=== PATIENT | female | born 1935 | race African-American/Black ===

== ENCOUNTER 2019-06-25 09:42 | Inpatient (IN) | payer MEDICARE, MEDICAID ==
[~2019-06-25] VITALS: Ht 152.4 cm; Wt 78.6 kg
[2019-06-25] MEDS ORDERED: MORPHINE SULFATE 4 MG/ML CPJ (NOT FOR IM USE) IV STA (10:42)
[2019-06-25] MEDS ORDERED: SODIUM CHLORIDE 0.9% 1,000 ML IV ONE (10:42)
[2019-06-25 11:20] LABS: HEMATOCRIT. 40.8 % (36.0-48.0); HEMOGLOBIN. 13.6 g/dL (12.0-16.0); MEAN CORPUSCULAR HEMOGLOBIN 27.2 pg (28.0-32.0); MEAN CORPUSCULAR VOLUME 81.3 fL (81.0-99.0); MEAN PLATELET VOLUME 10.3 fl (7.4-10.4); PLATELET 234 x1000/uL (130-400); RED BLOOD CELL COUNT 5.01 mill/uL (4.2-5.4); RED CELL DISTRIBUTION WIDTH 14.7 % (11.6-14.6)
[2019-06-25 11:25] LABS: CLARITY URINE CLEAR (CLEAR); COLOR URINE YELLOW (YELLOW); KETONES URINE 1+ (NEGATIVE); LEUKOCYTE ESTERASE URINE NEGATIVE (NEGATIVE); NITRITE URINE NEGATIVE (NEGATIVE); OCCULT BLOOD URINE 3+ (NEGATIVE); PROTEIN URINE 2+ (NEGATIVE); SPECIFIC GRAVITY URINE 1.013 (1.005-1.030); UROBILINOGEN URINE 0.2 E.U./dL (0.2-1.0)
[2019-06-25 11:26] LABS: CHLORIDE 102 mEq/L (98-107)
[2019-06-25 11:28] LABS: PROTHROMBIN TIME 9.8 sec (9.6-11.0)
[2019-06-25] MEDS ORDERED: SODIUM CHLORIDE 0.9% 1000ML BAG (SEPSIS BOLUS) IV ONE (11:30)
[2019-06-25 11:47] LABS: CREATINE KINASE 2717 IU/L (26-192)
[2019-06-25 12:05] LABS: PLATELET ESTIMATE NORMAL
[2019-06-25] MEDS ORDERED: PIPERACILLIN/TAZ 3.375G PREMIX 50 ML IV NR (12:30)
[2019-06-25] MEDS ORDERED: SODIUM CHLORIDE 0.45% 1,000 ML IV SCH (17:31)
[2019-06-25 17:32] VITALS: BP 141/87
[2019-06-25] MEDS ORDERED: GUAIFENESIN 200MG/10ML SUGAR FREE UDC PO PRN (17:45)
[2019-06-25] MEDS ORDERED: IPRATROPIUM/ALBUTEROL 0.5-3(2.5)MG/3ML NEB HHN PRN (17:45)
[2019-06-25] MEDS ORDERED: CLONIDINE 0.1MG TABLET PO PRN (17:45)
[2019-06-25] MEDS ORDERED: PIPERACILLIN/TAZ 3.375G PREMIX 50 ML IV SCH (17:45)
[2019-06-25] MEDS ORDERED: MAGNESIUM/ALUMINUM HYDROXIDE/SIMETHICONE 30ML UDC PO PRN (17:45)
[2019-06-25] MEDS ORDERED: ENOXAPARIN 40MG/0.4ML SYR SUBCUT SCH (17:45)
[2019-06-25] MEDS ORDERED: ACETAMINOPHEN 325MG TABLET PO PRN (17:45)
[2019-06-25] MEDS ORDERED: DIPHENHYDRAMINE 50MG/ML VIAL IV PRN (17:45)
[2019-06-25] MEDS ORDERED: HYDROCODONE/ACETAMINOPHEN 10/325MG TABLET PO PRN (17:45)
[2019-06-25] MEDS ORDERED: ONDANSETRON HCL 4MG/2ML INJ IV PRN (17:45)
[2019-06-25] MEDS ORDERED: LORAZEPAM 2MG/ML CPJ IV PRN (17:45)
[2019-06-25 20:00] VITALS: BP 138/75
[2019-06-25] MEDS: ENOXAPARIN 30MG/0.3ML SYR SUBCUT SCH (20:17)
[2019-06-25] MEDS: SODIUM CHLORIDE 0.9% INJ 3ML FLUSH IVF SCH (20:19)
[2019-06-25] MEDS: PIPERACILLIN/TAZOBACTAM 2.25 G in DEXTROSE 5% WATER 50 ML IV SCH (20:19)
[2019-06-25] MEDS ORDERED: PIPERACILLIN/TAZOBACTAM 2.25 G in DEXTROSE 5% WATER 50 ML IV SCH (22:00)
[2019-06-25] MEDS ORDERED: VANCOMYCIN 1 G PREMIX 200 ML IV NR (23:00)
[2019-06-26] VITALS (19 sets, daily range): BP systolic 94–152; BP diastolic 63–113
[2019-06-26 00:01] LABS: CREATINE KINASE MB FRACTION 13.2 ng/mL (0.5-3.6)
[2019-06-26] MEDS: SODIUM CHLORIDE 0.9% 1,000 ML IV SCH ×2 (05:20→18:09)
[2019-06-26] MEDS: PIPERACILLIN/TAZOBACTAM 2.25 G in DEXTROSE 5% WATER 50 ML IV SCH ×3 (05:40→21:18)
[2019-06-26] MEDS: SODIUM CHLORIDE 0.9% INJ 3ML FLUSH IVF SCH ×3 (05:40→21:18)
[2019-06-26 07:31] LABS: HEMATOCRIT. 37.6 % (36.0-48.0); HEMOGLOBIN. 12.4 g/dL (12.0-16.0); MEAN CORPUSCULAR VOLUME 81.9 fL (81.0-99.0); MEAN PLATELET VOLUME 10.5 fl (7.4-10.4); PLATELET 198 x1000/uL (130-400); RED BLOOD CELL COUNT 4.59 mill/uL (4.2-5.4); RED CELL DISTRIBUTION WIDTH 15.2 % (11.6-14.6)
[2019-06-26 07:50] LABS: CHLORIDE 110 mEq/L (98-107)
[2019-06-26 07:58] LABS: CREATINE KINASE MB FRACTION 9.2 ng/mL (0.5-3.6); HDL CHOLESTEROL 38 mg/dL (40-59); LDL CHOLESTEROL 102 mg/dL (5-100)
[2019-06-26 07:59] LABS: CREATINE KINASE 984 IU/L (26-192)
[2019-06-26] MEDS ORDERED: POTASSIUM CHLORIDE 10MEQ TABLET SR PO SCH (09:15)
[2019-06-26] MEDS: ASPIRIN 81MG TABLET PO SCH (10:00)
[2019-06-26 12:55] LABS: T4 FREE 1.54 ng/dL (0.76-1.46)
[2019-06-26 15:04] LABS: CREATINE KINASE MB FRACTION 5.6 ng/mL (0.5-3.6)
[2019-06-26] MEDS ORDERED: VANCOMYCIN 750 MG PREMIX 150 ML IV SCH (16:00)
[2019-06-26 17:06] LABS: PLATELET ESTIMATE NORMAL
[2019-06-26] MEDS ORDERED: ADENOSINE 3 MG/ML 2ML VIAL IV NR ×2 (17:45→18:00)
[2019-06-26] MEDS ORDERED: KCL 20MEQ/100ML PREMIX 100 ML IV NR (18:00)
[2019-06-26 18:24] LABS: BG BASE EXCESS -5.5 mmol/L (-2.0-2.0); BG CARBOXYHEMOGLOBIN 0.5 % (0.5-1.5); BG DEOXYHEMOGLOBIN 4.1 % (0.0-5.0); BG FRACTION INSPIRED OXYGEN 28; BG HCO3 ACT 17.6 mmol/L (22.0-26.0); BG METHEMOGLOBIN 0.1 % (0.0-1.5); BG OXYGEN SATURATION 95.9 % (92.0-98.5); BG OXYHEMOGLOBIN 95.3 % (94.0-97.0); BG PCO2 27.6 mmHg (35.0-45.0); BG PH 7.422 (7.350-7.450); BG PO2 89.8 mmHg (75.0-100.0); BG SAMPLE SITE RIGHT BRACHIAL; BG TOTAL HEMOGLOBIN 12.8 g/dL (12.0-18.0); BG VENT MODE NASAL CANNULA
[2019-06-26] MEDS ORDERED: DILTIAZEM HCL 125 MG in DEXT 5% WATER 100 ML IV PRN (18:45)
[2019-06-26] MEDS: ENOXAPARIN 30MG/0.3ML SYR SUBCUT SCH (19:50)
[2019-06-27] VITALS (60 sets, daily range): BP systolic 106–177; BP diastolic 56–97
[2019-06-27] MEDS: SODIUM CHLORIDE 0.9% INJ 3ML FLUSH IVF SCH ×3 (05:20→22:13)
[2019-06-27] MEDS: PIPERACILLIN/TAZOBACTAM 2.25 G in DEXTROSE 5% WATER 50 ML IV SCH ×3 (05:20→22:13)
[2019-06-27 06:11] LABS: HEMATOCRIT. 36.4 % (36.0-48.0); HEMOGLOBIN. 11.9 g/dL (12.0-16.0); MEAN CORPUSCULAR HEMOGLOBIN 27.1 pg (28.0-32.0); MEAN CORPUSCULAR VOLUME 82.9 fL (81.0-99.0); MEAN PLATELET VOLUME 9.8 fl (7.4-10.4); PLATELET 185 x1000/uL (130-400); RED BLOOD CELL COUNT 4.39 mill/uL (4.2-5.4); RED CELL DISTRIBUTION WIDTH 15.1 % (11.6-14.6)
[2019-06-27 06:29] LABS: CREATINE KINASE MB FRACTION 3.3 ng/mL (0.5-3.6)
[2019-06-27 08:16] LABS: PLATELET ESTIMATE NORMAL
[2019-06-27] MEDS ORDERED: KCL 20MEQ/100ML PREMIX 100 ML IV NR (08:30)
[2019-06-27] MEDS: ASPIRIN 81MG TABLET PO SCH (08:50)
[2019-06-27] MEDS: DOCUSATE SODIUM 100MG CAPSULE PO PRN (08:50)
[2019-06-27] MEDS: DEXTROSE 5% WATER 1,000 ML IV SCH (09:17)
[2019-06-27] MEDS ORDERED: VANCOMYCIN 500 MG PREMIX 100 ML IV SCH (12:00)
[2019-06-27] MEDS: MORPHINE SULFATE 2 MG/ML CPJ (NOT FOR IM USE) IV PRN (12:24)
[2019-06-27] MEDS ORDERED: NITROGLYCERIN 50MG PREMIX 250 ML IV PRN (18:45)
[2019-06-27] MEDS: ENOXAPARIN 30MG/0.3ML SYR SUBCUT SCH (20:42)
[2019-06-28] VITALS (30 sets, daily range): BP systolic 90–159; BP diastolic 56–86
[2019-06-28] MEDS: DEXTROSE 5% WATER 1,000 ML IV SCH (01:48)
[2019-06-28] MEDS: PIPERACILLIN/TAZOBACTAM 2.25 G in DEXTROSE 5% WATER 50 ML IV SCH ×3 (06:07→22:53)
[2019-06-28] MEDS: SODIUM CHLORIDE 0.9% INJ 3ML FLUSH IVF SCH ×3 (06:08→22:45)
[2019-06-28 06:13] LABS: HEMATOCRIT. 35.7 % (36.0-48.0); HEMOGLOBIN. 11.6 g/dL (12.0-16.0); MEAN PLATELET VOLUME 10.5 fl (7.4-10.4); PLATELET 200 x1000/uL (130-400); RED CELL DISTRIBUTION WIDTH 15.2 % (11.6-14.6)
[2019-06-28 06:21] LABS: PHOSPHORUS 1.2 mg/dL (2.5-4.9)
[2019-06-28] MEDS: MORPHINE SULFATE 2 MG/ML CPJ (NOT FOR IM USE) IV PRN ×3 (06:44→22:45)
[2019-06-28 07:42] LABS: NUCLEATED RED BLOOD CELLS 1 /100 WBC; PLATELET ESTIMATE NORMAL
[2019-06-28] MEDS ORDERED: POTASSIUM PHOS,M-BASIC-D-BASIC 20 MMOL in DEXT 5% WATER 243.3333 ML IV ONE (09:00)
[2019-06-28] MEDS: SODIUM CHLORIDE 0.45% 1,000 ML IV SCH (09:02)
[2019-06-28] MEDS: ASPIRIN 81MG TABLET PO SCH (09:02)
[2019-06-28] MEDS: CITRIC ACID/SODIUM CITRATE SOLN 30ML UDC PO SCH ×3 (09:02→18:22)
[2019-06-28] MEDS ORDERED: DEXTROSE 50% WATER 50ML SYRINGE IV PRN (14:45)
[2019-06-28] MEDS: VANCOMYCIN 750 MG PREMIX 150 ML IV SCH (16:08)
[2019-06-28] MEDS ORDERED: BLOOD SUGAR DIAGNOSTIC STRIP TEST SCH (16:50)
[2019-06-28] MEDS ORDERED: INSULIN LISPRO 100 UNITS/ML SUBCUT SCH (17:20)
[2019-06-28] MEDS: DOCUSATE SODIUM SUGAR FREE 100MG/10ML UDC NG SCH (19:45)
[2019-06-28] MEDS: ENOXAPARIN 30MG/0.3ML SYR SUBCUT SCH (20:29)
[2019-06-28] MEDS: LACTULOSE 20G/30ML UDC PO SCH (20:29)
[2019-06-28] MEDS: METOPROLOL TARTRATE 25MG TABLET PO SCH (20:30)
[2019-06-28] MEDS: BLOOD SUGAR DIAGNOSTIC STRIP TEST SCH (22:54)
[2019-06-28] MEDS: INSULIN LISPRO 100 UNITS/ML SUBCUT SCH (23:06)
[2019-06-29] VITALS (18 sets, daily range): BP systolic 92–152; BP diastolic 35–95
[2019-06-29] MEDS ORDERED: INSULIN LISPRO 100 UNITS/ML SUBCUT SCH
[2019-06-29] MEDS: INSULIN LISPRO 100 UNITS/ML SUBCUT SCH ×4 (06:00→23:25)
[2019-06-29] MEDS: PIPERACILLIN/TAZOBACTAM 2.25 G in DEXTROSE 5% WATER 50 ML IV SCH ×3 (06:14→22:16)
[2019-06-29] MEDS: SODIUM CHLORIDE 0.9% INJ 3ML FLUSH IVF SCH ×3 (06:15→22:16)
[2019-06-29] MEDS: BLOOD SUGAR DIAGNOSTIC STRIP TEST SCH ×4 (06:15→23:20)
[2019-06-29 07:29] LABS: HEMATOCRIT. 37.8 % (36.0-48.0); HEMOGLOBIN. 12.4 g/dL (12.0-16.0); MEAN CORPUSCULAR HEMOGLOBIN 27.5 pg (28.0-32.0); MEAN CORPUSCULAR VOLUME 83.8 fL (81.0-99.0); MEAN PLATELET VOLUME 10.2 fl (7.4-10.4); PLATELET 152 x1000/uL (130-400); RED BLOOD CELL COUNT 4.51 mill/uL (4.2-5.4); RED CELL DISTRIBUTION WIDTH 15.4 % (11.6-14.6)
[2019-06-29 08:48] LABS: PHOSPHORUS 1.8 mg/dL (2.5-4.9)
[2019-06-29] MEDS: VANCOMYCIN 750 MG PREMIX 150 ML IV SCH (09:12)
[2019-06-29] MEDS: DOCUSATE SODIUM SUGAR FREE 100MG/10ML UDC NG SCH (09:12)
[2019-06-29] MEDS: ASPIRIN 81MG TABLET PO SCH (09:13)
[2019-06-29] MEDS: CITRIC ACID/SODIUM CITRATE SOLN 30ML UDC PO SCH ×3 (09:13→17:05)
[2019-06-29] MEDS: METOPROLOL TARTRATE 25MG TABLET PO SCH ×2 (09:13→22:14)
[2019-06-29 09:53] LABS: PLATELET ESTIMATE NORMAL
[2019-06-29] MEDS: SODIUM CHLORIDE 0.45% 1,000 ML IV SCH ×2 (10:42→14:50)
[2019-06-29] MEDS: MORPHINE SULFATE 2 MG/ML CPJ (NOT FOR IM USE) IV PRN (11:12)
[2019-06-29] MEDS ORDERED: LORAZEPAM 2MG/ML CPJ IV PRN (12:15)
[2019-06-29] MEDS ORDERED: POTASSIUM PHOS,M-BASIC-D-BASIC 15 MMOL in DEXT 5% WATER 245 ML IV NR (15:30)
[2019-06-29] MEDS: LACTULOSE 20G/30ML UDC PO SCH (22:15)
[2019-06-29] MEDS: ENOXAPARIN 30MG/0.3ML SYR SUBCUT SCH (22:15)
[2019-06-29] MEDS: INSULIN GLARGINE UD 100 UNITS/ML SYR SUBCUT SCH (23:23)
[2019-06-30] VITALS (12 sets, daily range): BP systolic 108–157; BP diastolic 47–128
[2019-06-30] MEDS: PIPERACILLIN/TAZOBACTAM 2.25 G in DEXTROSE 5% WATER 50 ML IV SCH ×3 (05:56→22:19)
[2019-06-30] MEDS: BLOOD SUGAR DIAGNOSTIC STRIP TEST SCH ×3 (05:57→18:00)
[2019-06-30] MEDS: SODIUM CHLORIDE 0.45% 1,000 ML IV SCH ×3 (05:58→17:48)
[2019-06-30] MEDS: SODIUM CHLORIDE 0.9% INJ 3ML FLUSH IVF SCH ×3 (05:58→22:19)
[2019-06-30] MEDS: INSULIN LISPRO 100 UNITS/ML SUBCUT SCH ×3 (07:30→18:10)
[2019-06-30 08:08] LABS: HEMATOCRIT. 33.8 % (36.0-48.0); HEMOGLOBIN. 10.9 g/dL (12.0-16.0); MEAN CORPUSCULAR HEMOGLOBIN 26.8 pg (28.0-32.0); MEAN CORPUSCULAR VOLUME 83.3 fL (81.0-99.0); MEAN PLATELET VOLUME 9.9 fl (7.4-10.4); PLATELET 160 x1000/uL (130-400); RED BLOOD CELL COUNT 4.06 mill/uL (4.2-5.4); RED CELL DISTRIBUTION WIDTH 15.2 % (11.6-14.6)
[2019-06-30] MEDS: DOCUSATE SODIUM SUGAR FREE 100MG/10ML UDC NG SCH (09:07)
[2019-06-30] MEDS: CITRIC ACID/SODIUM CITRATE SOLN 30ML UDC PO SCH ×3 (09:07→18:09)
[2019-06-30] MEDS: ASPIRIN 81MG TABLET PO SCH (09:07)
[2019-06-30] MEDS: METOPROLOL TARTRATE 25MG TABLET PO SCH ×2 (09:09→20:40)
[2019-06-30 10:52] LABS: NUCLEATED RED BLOOD CELLS 3 /100 WBC
[2019-06-30 10:53] LABS: PLATELET ESTIMATE NORMAL
[2019-06-30 11:11] LABS: PHOSPHORUS 1.7 mg/dL (2.5-4.9)
[2019-06-30 17:37] LABS: CLARITY URINE CLEAR (CLEAR); COLOR URINE YELLOW (YELLOW); KETONES URINE NEGATIVE (NEGATIVE); LEUKOCYTE ESTERASE URINE TRACE (NEGATIVE); NITRITE URINE NEGATIVE (NEGATIVE); OCCULT BLOOD URINE 2+ (NEGATIVE); PH URINE 5.5 (4.5-8.0); PROTEIN URINE 2+ (NEGATIVE); SPECIFIC GRAVITY URINE 1.018 (1.005-1.030); UROBILINOGEN URINE 0.2 E.U./dL (0.2-1.0)
[2019-06-30] MEDS: ENOXAPARIN 30MG/0.3ML SYR SUBCUT SCH (20:40)
[2019-06-30] MEDS: LACTULOSE 20G/30ML UDC PO SCH (20:40)
[2019-06-30] MEDS: INSULIN GLARGINE UD 100 UNITS/ML SYR SUBCUT SCH (22:20)
[2019-07-01] VITALS (14 sets, daily range): BP systolic 95–166; BP diastolic 37–88
[2019-07-01] MEDS: BLOOD SUGAR DIAGNOSTIC STRIP TEST SCH ×5 (00:22→23:30)
[2019-07-01] MEDS: INSULIN LISPRO 100 UNITS/ML SUBCUT SCH ×6 (00:48→23:51)
[2019-07-01] MEDS: PIPERACILLIN/TAZOBACTAM 2.25 G in DEXTROSE 5% WATER 50 ML IV SCH (06:04)
[2019-07-01] MEDS: SODIUM CHLORIDE 0.9% INJ 3ML FLUSH IVF SCH ×3 (06:04→21:43)
[2019-07-01] MEDS: SODIUM CHLORIDE 0.45% 1,000 ML IV SCH (06:49)
[2019-07-01] MEDS: DOCUSATE SODIUM SUGAR FREE 100MG/10ML UDC NG SCH (08:43)
[2019-07-01] MEDS: CITRIC ACID/SODIUM CITRATE SOLN 30ML UDC PO SCH ×3 (08:43→17:31)
[2019-07-01] MEDS: ASPIRIN 81MG TABLET PO SCH (08:44)
[2019-07-01] MEDS: METOPROLOL TARTRATE 25MG TABLET PO SCH ×2 (08:44→20:32)
[2019-07-01] MEDS ORDERED: VANCOMYCIN 500 MG PREMIX 100 ML IV SCH (16:00)
[2019-07-01] MEDS: METRONIDAZOLE 500MG TABLET PO SCH ×2 (17:31→23:29)
[2019-07-01] MEDS: LACTULOSE 20G/30ML UDC PO SCH (20:32)
[2019-07-01] MEDS: ENOXAPARIN 30MG/0.3ML SYR SUBCUT SCH (20:32)
[2019-07-01] MEDS: INSULIN GLARGINE UD 100 UNITS/ML SYR SUBCUT SCH (21:44)
[2019-07-02] VITALS (11 sets, daily range): BP systolic 91–149; BP diastolic 53–87
[2019-07-02] MEDS: SODIUM CHLORIDE 0.9% INJ 3ML FLUSH IVF SCH ×3 (06:00→21:14)
[2019-07-02] MEDS: BLOOD SUGAR DIAGNOSTIC STRIP TEST SCH ×4 (06:05→23:40)
[2019-07-02] MEDS: INSULIN LISPRO 100 UNITS/ML SUBCUT SCH ×4 (06:13→23:53)
[2019-07-02 06:30] LABS: HEMATOCRIT. 32.6 % (36.0-48.0); HEMOGLOBIN. 10.7 g/dL (12.0-16.0); MEAN CORPUSCULAR HEMOGLOBIN 27.1 pg (28.0-32.0); MEAN CORPUSCULAR VOLUME 82.6 fL (81.0-99.0); MEAN PLATELET VOLUME 10.1 fl (7.4-10.4); PLATELET 138 x1000/uL (130-400); RED BLOOD CELL COUNT 3.95 mill/uL (4.2-5.4); RED CELL DISTRIBUTION WIDTH 15.5 % (11.6-14.6)
[2019-07-02 06:40] LABS: CHLORIDE 117 mEq/L (98-107)
[2019-07-02 06:55] LABS: PHOSPHORUS 2.3 mg/dL (2.5-4.9)
[2019-07-02] MEDS: METRONIDAZOLE 500MG TABLET PO SCH ×3 (08:14→23:39)
[2019-07-02] MEDS: CITRIC ACID/SODIUM CITRATE SOLN 30ML UDC PO SCH ×3 (08:14→16:02)
[2019-07-02] MEDS: ASPIRIN 81MG TABLET PO SCH (08:14)
[2019-07-02] MEDS: DOCUSATE SODIUM SUGAR FREE 100MG/10ML UDC NG SCH (08:14)
[2019-07-02] MEDS: METOPROLOL TARTRATE 25MG TABLET PO SCH ×2 (08:14→20:26)
[2019-07-02] MEDS ORDERED: POTASSIUM CHLORIDE 20MEQ/PACKET PO NR (08:54)
[2019-07-02] MEDS ORDERED: MAGNESIUM 2 G PREMIX 50 ML IV NR (10:00)
[2019-07-02 10:08] LABS: NUCLEATED RED BLOOD CELLS 2 /100 WBC
[2019-07-02 10:09] LABS: PLATELET ESTIMATE NORMAL
[2019-07-02] MEDS: ENOXAPARIN 30MG/0.3ML SYR SUBCUT SCH (20:26)
[2019-07-02] MEDS: LACTULOSE 20G/30ML UDC PO SCH (20:26)
[2019-07-02] MEDS: INSULIN GLARGINE UD 100 UNITS/ML SYR SUBCUT SCH (21:14)
[2019-07-03] VITALS (10 sets, daily range): BP systolic 114–146; BP diastolic 59–78
[2019-07-03] MEDS: BLOOD SUGAR DIAGNOSTIC STRIP TEST SCH ×2 (05:30→12:00)
[2019-07-03] MEDS: INSULIN LISPRO 100 UNITS/ML SUBCUT SCH ×3 (06:00→17:39)
[2019-07-03] MEDS: SODIUM CHLORIDE 0.9% INJ 3ML FLUSH IVF SCH ×2 (06:32→13:04)
[2019-07-03 07:13] LABS: BASOPHILS % 0.5 % (0.0-2.0); EOSINOPHILS % 2.4 % (0.0-5.0); HEMATOCRIT. 33.2 % (36.0-48.0); HEMOGLOBIN. 10.6 g/dL (12.0-16.0); LYMPHOCYTES % 10.9 % (20.0-50.0); MEAN CORPUSCULAR VOLUME 84.2 fL (81.0-99.0); MEAN PLATELET VOLUME 10.4 fl (7.4-10.4); NEUTROPHILS % 79.2 % (40.0-76.0); PLATELET 141 x1000/uL (130-400); RED BLOOD CELL COUNT 3.94 mill/uL (4.2-5.4); RED CELL DISTRIBUTION WIDTH 14.9 % (11.6-14.6)
[2019-07-03] MEDS: METRONIDAZOLE 500MG TABLET PO SCH (08:00)
[2019-07-03] MEDS: METOPROLOL TARTRATE 25MG TABLET PO SCH (09:04)
[2019-07-03] MEDS: CITRIC ACID/SODIUM CITRATE SOLN 30ML UDC PO SCH ×3 (09:04→17:39)
[2019-07-03] MEDS: DOCUSATE SODIUM 100MG CAPSULE PO PRN (09:04)
[2019-07-03] MEDS: ASPIRIN 81MG TABLET PO SCH (09:06)
[2019-07-03] MEDS: DOCUSATE SODIUM SUGAR FREE 100MG/10ML UDC NG SCH (09:07)
[2019-07-03 09:21] LABS: PHOSPHORUS 2.5 mg/dL (2.5-4.9)
== END 2019-07-03 17:42 | DRG 871 ==
LOC: ER 09:42 → 5WST 12:40 → EDBEDREQ 12:44 → ENRESERV 12:48 → CANRESERV 14:00 → ENRESERVTM 14:00 → ENRESERV 17:04 → CVICU 06-26 17:14 → 3WST 06-28 11:43
PROVIDERS: ADMIT Internal Medicine; ATTEND Internal Medicine
DX: A41.9 Sepsis, unspecified organism (principal); J18.1 Lobar pneumonia, unspecified organism; J96.00 Acute respiratory failure, unspecified whether with hypoxia or hypercapnia; N17.0 Acute kidney failure with tubular necrosis; G82.50 Quadriplegia, unspecified; G92 Toxic encephalopathy; M62.82 Rhabdomyolysis; I47.1 Supraventricular tachycardia; E46 Unspecified protein-calorie malnutrition; E87.0 Hyperosmolality and hypernatremia; I13.0 Hypertensive heart and chronic kidney disease with heart failure and stage 1 through stage 4 chronic kidney disease, or unspecified chronic kidney disease; I50.30 Unspecified diastolic (congestive) heart failure; R65.20 Severe sepsis without septic shock; I25.10 Atherosclerotic heart disease of native coronary artery without angina pectoris; E87.6 Hypokalemia; E86.0 Dehydration; F03.90 Unspecified dementia, unspecified severity, without behavioral disturbance, psychotic disturbance, mood disturbance, and anxiety; I27.20 Pulmonary hypertension, unspecified; K56.41 Fecal impaction; M16.10 Unilateral primary osteoarthritis, unspecified hip; M46.90 Unspecified inflammatory spondylopathy, site unspecified; M48.02 Spinal stenosis, cervical region; M48.04 Spinal stenosis, thoracic region; M48.061 Spinal stenosis, lumbar region without neurogenic claudication; N18.9 Chronic kidney disease, unspecified; R13.10 Dysphagia, unspecified; R74.0 Nonspecific elevation of levels of transaminase and lactic acid dehydrogenase [LDH]; S00.81XA Abrasion of other part of head, initial encounter; S50.312A Abrasion of left elbow, initial encounter; S50.311A Abrasion of right elbow, initial encounter; S80.211A Abrasion, right knee, initial encounter; W18.39XA Other fall on same level, initial encounter; Y93.89 Activity, other specified; Z83.3 Family history of diabetes mellitus; Z68.33 Body mass index [BMI] 33.0-33.9, adult; Y92.89 Other specified places as the place of occurrence of the external cause; Y99.8 Other external cause status
CPT/HCPCS: 36415; 36600; 70551; 71045; 72141; 72146; 72148; 72170; 73521; 73560; 74018; 74176; 80048; 80061; 80202; 81003; 82140; 82375; 82550; 82553; 82805; 82962; 83036; 83605; 83735; 83880; 84100; 84145; 84439; 84443; 84484; 85379; 92523; 92610; 93005; 93306; 93880; 93970; 96376; 97110; 97162; 97530; 99285; J0153; J1650; J1815; J2060; J2270; J2543; J3370; J3475; J3480; J3490; J7030; J7040; J7060; J7070; A4315

== ENCOUNTER 2019-07-03 18:00 | Inpatient (IN) | payer MEDICARE, MEDICAID ==
[~2019-07-03] VITALS: Ht 152.4 cm; Wt 78.6 kg
[2019-07-03] MEDS ORDERED: LORAZEPAM 1MG TABLET PO PRN (19:45)
[2019-07-03] MEDS ORDERED: MAGNESIUM/ALUMINUM HYDROXIDE/SIMETHICONE 30ML UDC PO PRN (19:45)
[2019-07-03] MEDS ORDERED: ACETAMINOPHEN 325MG TABLET PO PRN (19:45)
[2019-07-03] MEDS ORDERED: GUAIFENESIN 200MG/10ML SUGAR FREE UDC PO PRN (19:45)
[2019-07-03] MEDS ORDERED: MORPHINE SULFATE 2 MG/ML CPJ (NOT FOR IM USE) IV PRN (19:45)
[2019-07-03] MEDS ORDERED: ONDANSETRON HCL 4MG TABLET PO PRN (19:45)
[2019-07-03] MEDS ORDERED: DEXTROSE 50% WATER 50ML SYRINGE IV PRN (19:45)
[2019-07-03] MEDS ORDERED: DIPHENHYDRAMINE 25MG CAPSULE PO PRN (19:45)
[2019-07-03] MEDS ORDERED: DOCUSATE SODIUM 100MG CAPSULE PO PRN (19:45)
[2019-07-03] MEDS ORDERED: CLONIDINE 0.1MG TABLET PO PRN (19:45)
[2019-07-03] MEDS ORDERED: IPRATROPIUM/ALBUTEROL 0.5-3(2.5)MG/3ML NEB HHN PRN (19:45)
[2019-07-03 20:00] VITALS: BP 147/86
[2019-07-03] MEDS ORDERED: INSULIN LISPRO 100 UNITS/ML SUBCUT SCH (21:00)
[2019-07-03] MEDS: METRONIDAZOLE 500MG TABLET PO SCH (21:45)
[2019-07-03] MEDS: SODIUM CHLORIDE 0.9% INJ 3ML FLUSH IVF SCH (21:45)
[2019-07-03] MEDS: METOPROLOL TARTRATE 25MG TABLET PO SCH (21:46)
[2019-07-03] MEDS: INSULIN GLARGINE UD 100 UNITS/ML SYR SUBCUT SCH (22:01)
[2019-07-04] MEDS: BLOOD SUGAR DIAGNOSTIC STRIP TEST SCH ×5 (00:13→23:55)
[2019-07-04] MEDS: INSULIN LISPRO 100 UNITS/ML SUBCUT SCH ×5 (05:21→23:58)
[2019-07-04] MEDS: SODIUM CHLORIDE 0.9% INJ 3ML FLUSH IVF SCH ×3 (06:13→21:48)
[2019-07-04] MEDS: METRONIDAZOLE 500MG TABLET PO SCH ×3 (06:13→21:49)
[2019-07-04 08:00] VITALS: BP 124/65
[2019-07-04] MEDS: ENOXAPARIN 30MG/0.3ML SYR SUBCUT SCH (09:00)
[2019-07-04] MEDS: DOCUSATE SODIUM 100MG CAPSULE PO SCH ×2 (09:30→17:00)
[2019-07-04] MEDS: ASPIRIN 81MG TABLET PO SCH (09:58)
[2019-07-04] MEDS: CITRIC ACID/SODIUM CITRATE SOLN 30ML UDC PO SCH ×3 (09:58→18:04)
[2019-07-04] MEDS: METOPROLOL TARTRATE 25MG TABLET PO SCH ×3 (09:58→21:49)
[2019-07-04] MEDS: DOCUSATE SODIUM SUGAR FREE 100MG/10ML UDC NG SCH (09:59)
[2019-07-04 12:11] LABS: BASOPHILS % 0.2 % (0.0-2.0); EOSINOPHILS % 1.2 % (0.0-5.0); HEMATOCRIT. 33.2 % (36.0-48.0); HEMOGLOBIN. 10.7 g/dL (12.0-16.0); LYMPHOCYTES % 7.1 % (20.0-50.0); MEAN CORPUSCULAR HEMOGLOBIN 26.9 pg (28.0-32.0); MEAN CORPUSCULAR VOLUME 83.3 fL (81.0-99.0); MEAN PLATELET VOLUME 10.5 fl (7.4-10.4); MONOCYTES % 5.8 % (2.0-8.0); NEUTROPHILS % 85.7 % (40.0-76.0); PLATELET 148 x1000/uL (130-400); RED BLOOD CELL COUNT 3.99 mill/uL (4.2-5.4); RED CELL DISTRIBUTION WIDTH 15.3 % (11.6-14.6)
[2019-07-04 12:15] LABS: CHLORIDE 112 mEq/L (98-107)
[2019-07-04 14:29] VITALS: BP 118/55
[2019-07-04 14:56] LABS: FOLIC ACID (FOLATE) SERUM 16.4 ng/mL (>5.38)
[2019-07-04] MEDS ORDERED: HYDROCODONE/ACETAMINOPHEN 5/325MG TABLET PO PRN (16:00)
[2019-07-04] MEDS ORDERED: ACETAMINOPHEN 650MG/20.3ML UDC PO PRN (16:00)
[2019-07-04 20:00] VITALS: BP 102/60
[2019-07-04] MEDS: INSULIN GLARGINE UD 100 UNITS/ML SYR SUBCUT SCH (21:49)
[2019-07-05] MEDS: SODIUM CHLORIDE 0.9% INJ 3ML FLUSH IVF SCH ×3 (06:00→21:14)
[2019-07-05] MEDS: METRONIDAZOLE 500MG TABLET PO SCH ×3 (06:31→21:13)
[2019-07-05] MEDS: BLOOD SUGAR DIAGNOSTIC STRIP TEST SCH ×4 (06:31→23:33)
[2019-07-05] MEDS: INSULIN LISPRO 100 UNITS/ML SUBCUT SCH ×4 (06:41→23:32)
[2019-07-05] MEDS: METOPROLOL TARTRATE 25MG TABLET PO SCH ×3 (06:41→21:14)
[2019-07-05 08:00] VITALS: BP 134/48
[2019-07-05] MEDS: DOCUSATE SODIUM SUGAR FREE 100MG/10ML UDC NG SCH (09:00)
[2019-07-05] MEDS: DOCUSATE SODIUM 100MG CAPSULE PO SCH ×2 (09:00→17:19)
[2019-07-05] MEDS: CITRIC ACID/SODIUM CITRATE SOLN 30ML UDC PO SCH ×3 (09:02→17:19)
[2019-07-05] MEDS: ASPIRIN 81MG TABLET PO SCH (09:02)
[2019-07-05] MEDS: ENOXAPARIN 30MG/0.3ML SYR SUBCUT SCH (09:02)
[2019-07-05 09:32] LABS: HEMATOCRIT. 32.7 % (36.0-48.0); HEMOGLOBIN. 10.7 g/dL (12.0-16.0); MEAN CORPUSCULAR HEMOGLOBIN 27.6 pg (28.0-32.0); MEAN CORPUSCULAR VOLUME 83.9 fL (81.0-99.0); MEAN PLATELET VOLUME 11.4 fl (7.4-10.4); PLATELET 171 x1000/uL (130-400); RED CELL DISTRIBUTION WIDTH 15.1 % (11.6-14.6)
[2019-07-05 10:02] LABS: CHLORIDE 119 mEq/L (98-107)
[2019-07-05 11:24] LABS: PLATELET ESTIMATE NORMAL
[2019-07-05] MEDS ORDERED: POTASSIUM CHLORIDE 20MEQ TABLET SR PO NR (16:15)
[2019-07-05 20:00] VITALS: BP 115/67
[2019-07-05] MEDS: MUPIROCIN 2% OINT 22GM NS SCH (21:14)
[2019-07-05] MEDS: INSULIN GLARGINE UD 100 UNITS/ML SYR SUBCUT SCH (23:32)
[2019-07-06] MEDS: METRONIDAZOLE 500MG TABLET PO SCH ×3 (05:41→20:54)
[2019-07-06] MEDS: BLOOD SUGAR DIAGNOSTIC STRIP TEST SCH ×4 (05:46→23:49)
[2019-07-06] MEDS: METOPROLOL TARTRATE 25MG TABLET PO SCH ×3 (05:46→20:52)
[2019-07-06] MEDS: SODIUM CHLORIDE 0.9% INJ 3ML FLUSH IVF SCH ×3 (05:46→20:54)
[2019-07-06] MEDS: INSULIN LISPRO 100 UNITS/ML SUBCUT SCH ×4 (06:30→23:55)
[2019-07-06 08:02] VITALS: BP 101/65
[2019-07-06] MEDS: CITRIC ACID/SODIUM CITRATE SOLN 30ML UDC PO SCH ×2 (08:30→12:40)
[2019-07-06] MEDS: ENOXAPARIN 30MG/0.3ML SYR SUBCUT SCH (08:30)
[2019-07-06] MEDS: DOCUSATE SODIUM 100MG CAPSULE PO SCH ×2 (08:30→16:55)
[2019-07-06] MEDS: ASPIRIN 81MG TABLET PO SCH (08:30)
[2019-07-06] MEDS: MUPIROCIN 2% OINT 22GM NS SCH ×2 (08:38→20:10)
[2019-07-06] MEDS: DOCUSATE SODIUM SUGAR FREE 100MG/10ML UDC NG SCH (09:00)
[2019-07-06 11:40] LABS: BASOPHILS % 0.7 % (0.0-2.0); EOSINOPHILS % 1.5 % (0.0-5.0); HEMATOCRIT. 33.7 % (36.0-48.0); LYMPHOCYTES % 16.8 % (20.0-50.0); MEAN CORPUSCULAR HEMOGLOBIN 27.4 pg (28.0-32.0); MEAN PLATELET VOLUME 10.8 fl (7.4-10.4); MONOCYTES % 11.4 % (2.0-8.0); NEUTROPHILS % 69.6 % (40.0-76.0); PLATELET 178 x1000/uL (130-400); RED BLOOD CELL COUNT 4.01 mill/uL (4.2-5.4); RED CELL DISTRIBUTION WIDTH 15.2 % (11.6-14.6)
[2019-07-06] MEDS ORDERED: DEXTROSE 5% WATER 1,000 ML IV SCH (13:00)
[2019-07-06] MEDS ORDERED: POTASSIUM CHLORIDE 20MEQ TABLET SR PO SCH (13:00)
[2019-07-06 20:00] VITALS: BP 95/42
[2019-07-06] MEDS: INSULIN GLARGINE UD 100 UNITS/ML SYR SUBCUT SCH (20:56)
[2019-07-06] MEDS ORDERED: SODIUM CHLORIDE 0.9% 1,000 ML IV SCH (23:30)
[2019-07-07] MEDS: METOPROLOL TARTRATE 25MG TABLET PO SCH ×3 (05:07→21:01)
[2019-07-07] MEDS: SODIUM CHLORIDE 0.9% INJ 3ML FLUSH IVF SCH ×3 (05:07→21:00)
[2019-07-07] MEDS: BLOOD SUGAR DIAGNOSTIC STRIP TEST SCH ×4 (05:10→23:44)
[2019-07-07] MEDS: METRONIDAZOLE 500MG TABLET PO SCH ×3 (05:10→21:01)
[2019-07-07] MEDS: INSULIN LISPRO 100 UNITS/ML SUBCUT SCH ×4 (05:18→23:52)
[2019-07-07 06:58] LABS: BASOPHILS % 0.8 % (0.0-2.0); EOSINOPHILS % 2.6 % (0.0-5.0); HEMATOCRIT. 30.8 % (36.0-48.0); HEMOGLOBIN. 10.4 g/dL (12.0-16.0); LYMPHOCYTES % 15.6 % (20.0-50.0); MEAN CORPUSCULAR HEMOGLOBIN 28.5 pg (28.0-32.0); MEAN CORPUSCULAR VOLUME 84.4 fL (81.0-99.0); MONOCYTES % 9.6 % (2.0-8.0); NEUTROPHILS % 71.4 % (40.0-76.0); PLATELET 193 x1000/uL (130-400); RED BLOOD CELL COUNT 3.65 mill/uL (4.2-5.4); RED CELL DISTRIBUTION WIDTH 15.5 % (11.6-14.6)
[2019-07-07 07:04] LABS: PHOSPHORUS 3.4 mg/dL (2.5-4.9)
[2019-07-07 08:00] VITALS: BP 102/57
[2019-07-07] MEDS: ASPIRIN 81MG TABLET PO SCH (09:19)
[2019-07-07] MEDS: MUPIROCIN 2% OINT 22GM NS SCH ×2 (09:19→21:00)
[2019-07-07] MEDS: ENOXAPARIN 30MG/0.3ML SYR SUBCUT SCH (09:19)
[2019-07-07] MEDS: DOCUSATE SODIUM 100MG CAPSULE PO SCH ×2 (09:19→18:26)
[2019-07-07] MEDS: SODIUM CHLORIDE 0.45% 1,000 ML IV SCH (11:15)
[2019-07-07] MEDS: INSULIN GLARGINE UD 100 UNITS/ML SYR SUBCUT SCH ×2 (11:17→21:26)
[2019-07-07 20:10] VITALS: BP 146/81
[2019-07-08] MEDS: SODIUM CHLORIDE 0.45% 1,000 ML IV SCH ×2 (01:34→17:38)
[2019-07-08] MEDS: SODIUM CHLORIDE 0.9% INJ 3ML FLUSH IVF SCH ×3 (05:28→22:00)
[2019-07-08] MEDS: METOPROLOL TARTRATE 25MG TABLET PO SCH ×3 (05:28→21:46)
[2019-07-08] MEDS: METRONIDAZOLE 500MG TABLET PO SCH ×3 (05:28→21:45)
[2019-07-08] MEDS: BLOOD SUGAR DIAGNOSTIC STRIP TEST SCH ×4 (05:28→21:00)
[2019-07-08] MEDS: INSULIN LISPRO 100 UNITS/ML SUBCUT SCH ×4 (05:32→22:43)
[2019-07-08 07:30] VITALS: BP 126/70
[2019-07-08 07:55] VITALS: BP 126/70
[2019-07-08] MEDS: ENOXAPARIN 30MG/0.3ML SYR SUBCUT SCH (08:21)
[2019-07-08] MEDS: ASPIRIN 81MG TABLET PO SCH (08:21)
[2019-07-08] MEDS: DOCUSATE SODIUM 100MG CAPSULE PO SCH ×2 (08:21→16:34)
[2019-07-08] MEDS: MUPIROCIN 2% OINT 22GM NS SCH ×2 (08:25→21:53)
[2019-07-08 09:05] LABS: BASOPHILS % 0.6 % (0.0-2.0); EOSINOPHILS % 1.7 % (0.0-5.0); HEMATOCRIT. 31.3 % (36.0-48.0); HEMOGLOBIN. 10.1 g/dL (12.0-16.0); LYMPHOCYTES % 12.7 % (20.0-50.0); MEAN CORPUSCULAR HEMOGLOBIN 27.5 pg (28.0-32.0); MEAN PLATELET VOLUME 10.5 fl (7.4-10.4); PLATELET 183 x1000/uL (130-400); RED BLOOD CELL COUNT 3.68 mill/uL (4.2-5.4); RED CELL DISTRIBUTION WIDTH 15.7 % (11.6-14.6)
[2019-07-08 09:14] LABS: CHLORIDE 120 mEq/L (98-107)
[2019-07-08 09:24] LABS: CREATINE KINASE 53 IU/L (26-192)
[2019-07-08] MEDS: INSULIN GLARGINE UD 100 UNITS/ML SYR SUBCUT SCH ×2 (10:16→22:00)
[2019-07-08 19:11] LABS: 25-HYDROXY VITAMIN D3 19 ng/mL (.)
[2019-07-08 20:00] VITALS: BP 113/60
[2019-07-09] MEDS: METOPROLOL TARTRATE 25MG TABLET PO SCH ×3 (05:46→21:14)
[2019-07-09] MEDS: METRONIDAZOLE 500MG TABLET PO SCH ×3 (05:46→21:14)
[2019-07-09] MEDS: SODIUM CHLORIDE 0.9% INJ 3ML FLUSH IVF SCH ×3 (05:47→21:14)
[2019-07-09] MEDS: BLOOD SUGAR DIAGNOSTIC STRIP TEST SCH ×4 (06:30→21:14)
[2019-07-09] MEDS: INSULIN LISPRO 100 UNITS/ML SUBCUT SCH ×4 (06:30→22:17)
[2019-07-09 06:55] LABS: BASOPHILS % 0.7 % (0.0-2.0); EOSINOPHILS % 2.3 % (0.0-5.0); HEMATOCRIT. 31.5 % (36.0-48.0); HEMOGLOBIN. 10.4 g/dL (12.0-16.0); LYMPHOCYTES % 16.2 % (20.0-50.0); MEAN CORPUSCULAR HEMOGLOBIN 27.8 pg (28.0-32.0); MEAN CORPUSCULAR VOLUME 84.3 fL (81.0-99.0); MEAN PLATELET VOLUME 10.6 fl (7.4-10.4); MONOCYTES % 5.4 % (2.0-8.0); NEUTROPHILS % 75.4 % (40.0-76.0); PLATELET 192 x1000/uL (130-400); RED BLOOD CELL COUNT 3.74 mill/uL (4.2-5.4)
[2019-07-09 07:46] LABS: CHLORIDE 118 mEq/L (98-107)
[2019-07-09 07:57] VITALS: BP 118/62
[2019-07-09] MEDS: ASPIRIN 81MG TABLET PO SCH (08:24)
[2019-07-09] MEDS: MUPIROCIN 2% OINT 22GM NS SCH ×2 (08:24→21:14)
[2019-07-09] MEDS: DOCUSATE SODIUM 100MG CAPSULE PO SCH ×2 (08:24→16:41)
[2019-07-09] MEDS: ENOXAPARIN 30MG/0.3ML SYR SUBCUT SCH (08:25)
[2019-07-09] MEDS: INSULIN GLARGINE UD 100 UNITS/ML SYR SUBCUT SCH ×2 (10:13→22:21)
[2019-07-09] MEDS: SODIUM CHLORIDE 0.45% 1,000 ML IV SCH (10:49)
[2019-07-09 20:00] VITALS: BP 121/54
[2019-07-10] MEDS: METOPROLOL TARTRATE 25MG TABLET PO SCH ×3 (06:00→21:51)
[2019-07-10] MEDS: METRONIDAZOLE 500MG TABLET PO SCH ×2 (06:06→13:23)
[2019-07-10] MEDS: INSULIN LISPRO 100 UNITS/ML SUBCUT SCH ×4 (06:10→22:19)
[2019-07-10] MEDS: SODIUM CHLORIDE 0.9% INJ 3ML FLUSH IVF SCH ×3 (06:10→22:17)
[2019-07-10] MEDS: BLOOD SUGAR DIAGNOSTIC STRIP TEST SCH ×4 (06:10→21:00)
[2019-07-10 07:57] VITALS: BP 114/62
[2019-07-10 08:09] VITALS: BP 114/62
[2019-07-10] MEDS: ASPIRIN 81MG TABLET PO SCH (08:23)
[2019-07-10] MEDS: ENOXAPARIN 30MG/0.3ML SYR SUBCUT SCH (08:23)
[2019-07-10] MEDS: DOCUSATE SODIUM 100MG CAPSULE PO SCH ×2 (08:23→16:21)
[2019-07-10] MEDS: MUPIROCIN 2% OINT 22GM NS SCH (08:24)
[2019-07-10] MEDS: INSULIN GLARGINE UD 100 UNITS/ML SYR SUBCUT SCH ×2 (09:54→22:16)
[2019-07-10 20:00] VITALS: BP 113/47
[2019-07-11] MEDS: SODIUM CHLORIDE 0.9% INJ 3ML FLUSH IVF SCH ×3 (06:18→21:28)
[2019-07-11] MEDS: METOPROLOL TARTRATE 25MG TABLET PO SCH ×3 (06:18→21:27)
[2019-07-11] MEDS: INSULIN LISPRO 100 UNITS/ML SUBCUT SCH ×4 (06:19→20:32)
[2019-07-11] MEDS: BLOOD SUGAR DIAGNOSTIC STRIP TEST SCH ×4 (06:19→20:35)
[2019-07-11 06:58] LABS: CHLORIDE 114 mEq/L (98-107)
[2019-07-11 07:12] LABS: BASOPHILS % 0.4 % (0.0-2.0); EOSINOPHILS % 2.1 % (0.0-5.0); HEMATOCRIT. 27.4 % (36.0-48.0); HEMOGLOBIN. 9.2 g/dL (12.0-16.0); LYMPHOCYTES % 16.9 % (20.0-50.0); MEAN CORPUSCULAR HEMOGLOBIN 27.9 pg (28.0-32.0); MEAN CORPUSCULAR VOLUME 83.4 fL (81.0-99.0); MONOCYTES % 6.7 % (2.0-8.0); NEUTROPHILS % 73.9 % (40.0-76.0); PLATELET 168 x1000/uL (130-400); RED BLOOD CELL COUNT 3.28 mill/uL (4.2-5.4); RED CELL DISTRIBUTION WIDTH 16.1 % (11.6-14.6)
[2019-07-11 08:13] VITALS: BP 130/64
[2019-07-11] MEDS: ENOXAPARIN 30MG/0.3ML SYR SUBCUT SCH (08:37)
[2019-07-11] MEDS: ASPIRIN 81MG TABLET PO SCH (08:37)
[2019-07-11] MEDS: DOCUSATE SODIUM 100MG CAPSULE PO SCH ×2 (08:38→16:31)
[2019-07-11] MEDS: INSULIN GLARGINE UD 100 UNITS/ML SYR SUBCUT SCH ×2 (10:27→21:58)
[2019-07-11] MEDS ORDERED: DIPHENHYDRAMINE 25MG CAPSULE PO PRN (13:45)
[2019-07-11 20:00] VITALS: BP 119/45
[2019-07-12] MEDS: SODIUM CHLORIDE 0.9% INJ 3ML FLUSH IVF SCH ×3 (05:04→21:08)
[2019-07-12] MEDS: METOPROLOL TARTRATE 25MG TABLET PO SCH ×4 (05:05→21:07)
[2019-07-12] MEDS: BLOOD SUGAR DIAGNOSTIC STRIP TEST SCH ×4 (06:25→21:06)
[2019-07-12] MEDS: INSULIN LISPRO 100 UNITS/ML SUBCUT SCH ×4 (06:25→21:00)
[2019-07-12 08:00] VITALS: BP 113/54
[2019-07-12] MEDS: DOCUSATE SODIUM 100MG CAPSULE PO SCH ×2 (08:38→17:06)
[2019-07-12] MEDS: ASPIRIN 81MG TABLET PO SCH (08:38)
[2019-07-12] MEDS: ENOXAPARIN 40MG/0.4ML SYR SUBCUT SCH (08:39)
[2019-07-12] MEDS: INSULIN GLARGINE UD 100 UNITS/ML SYR SUBCUT SCH ×2 (10:53→21:57)
[2019-07-12 14:15] VITALS: BP 131/53
[2019-07-12] MEDS ORDERED: ERGOCALCIFEROL 50000UNITS CAPSULE PO SCH (16:00)
[2019-07-12 20:00] VITALS: BP 129/62
[2019-07-13] MEDS: METOPROLOL TARTRATE 25MG TABLET PO SCH ×3 (06:00→21:56)
[2019-07-13] MEDS: SODIUM CHLORIDE 0.9% INJ 3ML FLUSH IVF SCH ×2 (06:00→13:10)
[2019-07-13] MEDS: INSULIN LISPRO 100 UNITS/ML SUBCUT SCH ×4 (06:30→21:56)
[2019-07-13] MEDS: BLOOD SUGAR DIAGNOSTIC STRIP TEST SCH ×4 (06:50→21:38)
[2019-07-13 07:15] LABS: BASOPHILS % 0.8 % (0.0-2.0); EOSINOPHILS % 2.9 % (0.0-5.0); HEMATOCRIT. 29.8 % (36.0-48.0); HEMOGLOBIN. 9.8 g/dL (12.0-16.0); LYMPHOCYTES % 23.4 % (20.0-50.0); MEAN CORPUSCULAR HEMOGLOBIN 27.8 pg (28.0-32.0); MEAN CORPUSCULAR VOLUME 84.2 fL (81.0-99.0); MEAN PLATELET VOLUME 9.7 fl (7.4-10.4); MONOCYTES % 12.3 % (2.0-8.0); NEUTROPHILS % 60.6 % (40.0-76.0); PLATELET 197 x1000/uL (130-400); RED BLOOD CELL COUNT 3.54 mill/uL (4.2-5.4); RED CELL DISTRIBUTION WIDTH 16.7 % (11.6-14.6)
[2019-07-13 07:30] LABS: CHLORIDE 112 mEq/L (98-107)
[2019-07-13 08:00] VITALS: BP 101/59
[2019-07-13] MEDS: ASPIRIN 81MG TABLET PO SCH (08:23)
[2019-07-13] MEDS: DOCUSATE SODIUM 100MG CAPSULE PO SCH ×2 (08:23→16:21)
[2019-07-13] MEDS: ENOXAPARIN 40MG/0.4ML SYR SUBCUT SCH (08:23)
[2019-07-13] MEDS: INSULIN GLARGINE UD 100 UNITS/ML SYR SUBCUT SCH ×2 (10:29→21:55)
[2019-07-13 20:00] VITALS: BP 113/46
[2019-07-14] MEDS: METOPROLOL TARTRATE 25MG TABLET PO SCH ×3 (06:00→21:30)
[2019-07-14] MEDS: BLOOD SUGAR DIAGNOSTIC STRIP TEST SCH ×4 (06:21→20:27)
[2019-07-14] MEDS: INSULIN LISPRO 100 UNITS/ML SUBCUT SCH ×4 (06:21→20:31)
[2019-07-14 07:59] LABS: HEMATOCRIT. 29.8 % (36.0-48.0); HEMOGLOBIN. 9.8 g/dL (12.0-16.0); MEAN CORPUSCULAR HEMOGLOBIN 27.5 pg (28.0-32.0); MEAN CORPUSCULAR VOLUME 84.1 fL (81.0-99.0); MEAN PLATELET VOLUME 10.1 fl (7.4-10.4); PLATELET 213 x1000/uL (130-400); RED BLOOD CELL COUNT 3.55 mill/uL (4.2-5.4); RED CELL DISTRIBUTION WIDTH 16.4 % (11.6-14.6)
[2019-07-14 08:00] VITALS: BP 111/45
[2019-07-14] MEDS: ENOXAPARIN 40MG/0.4ML SYR SUBCUT SCH (08:18)
[2019-07-14] MEDS: DOCUSATE SODIUM 100MG CAPSULE PO SCH ×2 (08:18→16:28)
[2019-07-14] MEDS: ASPIRIN 81MG TABLET PO SCH (08:18)
[2019-07-14 08:47] LABS: CHLORIDE 106 mEq/L (98-107)
[2019-07-14] MEDS: INSULIN GLARGINE UD 100 UNITS/ML SYR SUBCUT SCH ×2 (09:48→22:03)
[2019-07-14 10:23] LABS: PLATELET ESTIMATE NORMAL
[2019-07-14 20:00] VITALS: BP 109/61
[2019-07-15] MEDS: METOPROLOL TARTRATE 25MG TABLET PO SCH ×3 (05:07→21:51)
[2019-07-15] MEDS: BLOOD SUGAR DIAGNOSTIC STRIP TEST SCH ×4 (05:40→21:25)
[2019-07-15 08:00] VITALS: BP 147/72
[2019-07-15] MEDS: INSULIN LISPRO 100 UNITS/ML SUBCUT SCH ×4 (08:27→21:00)
[2019-07-15] MEDS: ASPIRIN 81MG TABLET PO SCH (08:46)
[2019-07-15] MEDS: DOCUSATE SODIUM 100MG CAPSULE PO SCH ×2 (08:46→16:20)
[2019-07-15] MEDS: ENOXAPARIN 40MG/0.4ML SYR SUBCUT SCH (08:46)
[2019-07-15] MEDS: INSULIN GLARGINE UD 100 UNITS/ML SYR SUBCUT SCH ×2 (10:00→21:26)
[2019-07-15 20:00] VITALS: BP 130/58
[2019-07-16] MEDS: METOPROLOL TARTRATE 25MG TABLET PO SCH ×3 (06:00→21:41)
[2019-07-16] MEDS: INSULIN LISPRO 100 UNITS/ML SUBCUT SCH ×4 (06:16→21:41)
[2019-07-16] MEDS: BLOOD SUGAR DIAGNOSTIC STRIP TEST SCH ×5 (06:16→21:35)
[2019-07-16] MEDS: DOCUSATE SODIUM 100MG CAPSULE PO SCH ×2 (08:22→16:13)
[2019-07-16] MEDS: ASPIRIN 81MG TABLET PO SCH (08:22)
[2019-07-16] MEDS: ENOXAPARIN 40MG/0.4ML SYR SUBCUT SCH (08:23)
[2019-07-16 08:36] VITALS: BP 123/60
[2019-07-16] MEDS: INSULIN GLARGINE UD 100 UNITS/ML SYR SUBCUT SCH ×2 (09:18→21:42)
[2019-07-16 13:10] VITALS: BP 123/60
[2019-07-16 20:00] VITALS: BP 121/62
[2019-07-17] MEDS: METOPROLOL TARTRATE 25MG TABLET PO SCH (06:00)
[2019-07-17] MEDS: BLOOD SUGAR DIAGNOSTIC STRIP TEST SCH ×2 (06:17→11:32)
[2019-07-17] MEDS: INSULIN LISPRO 100 UNITS/ML SUBCUT SCH ×2 (06:17→11:15)
[2019-07-17 08:00] VITALS: BP 107/50
[2019-07-17] MEDS: DOCUSATE SODIUM 100MG CAPSULE PO SCH (09:10)
[2019-07-17] MEDS: ENOXAPARIN 40MG/0.4ML SYR SUBCUT SCH (09:10)
[2019-07-17] MEDS: ASPIRIN 81MG TABLET PO SCH (09:10)
[2019-07-17] MEDS: INSULIN GLARGINE UD 100 UNITS/ML SYR SUBCUT SCH (10:24)
[2019-07-17 10:42] VITALS: BP 110/60
== END 2019-07-17 12:31 | disposition home health service (06) | DRG 91 ==
PROVIDERS: ADMIT Physical Medicine & Rehabilitation Spinal Cord Injury Medicine; ATTEND Internal Medicine
DX: G92 Toxic encephalopathy (principal); G82.50 Quadriplegia, unspecified; J18.9 Pneumonia, unspecified organism; A41.9 Sepsis, unspecified organism; M62.82 Rhabdomyolysis; N17.9 Acute kidney failure, unspecified; I13.0 Hypertensive heart and chronic kidney disease with heart failure and stage 1 through stage 4 chronic kidney disease, or unspecified chronic kidney disease; E87.0 Hyperosmolality and hypernatremia; I50.30 Unspecified diastolic (congestive) heart failure; E46 Unspecified protein-calorie malnutrition; I47.1 Supraventricular tachycardia; R13.10 Dysphagia, unspecified; I25.10 Atherosclerotic heart disease of native coronary artery without angina pectoris; F03.90 Unspecified dementia, unspecified severity, without behavioral disturbance, psychotic disturbance, mood disturbance, and anxiety; M16.10 Unilateral primary osteoarthritis, unspecified hip; K56.41 Fecal impaction; M48.02 Spinal stenosis, cervical region; M48.061 Spinal stenosis, lumbar region without neurogenic claudication; M48.04 Spinal stenosis, thoracic region; R53.81 Other malaise; E55.9 Vitamin D deficiency, unspecified; E87.6 Hypokalemia; Z60.2 Problems related to living alone; K52.9 Noninfective gastroenteritis and colitis, unspecified; R74.0 Nonspecific elevation of levels of transaminase and lactic acid dehydrogenase [LDH]; E66.01 Morbid (severe) obesity due to excess calories; M47.812 Spondylosis without myelopathy or radiculopathy, cervical region; M47.816 Spondylosis without myelopathy or radiculopathy, lumbar region; D50.9 Iron deficiency anemia, unspecified; N18.9 Chronic kidney disease, unspecified; E11.22 Type 2 diabetes mellitus with diabetic chronic kidney disease; I27.20 Pulmonary hypertension, unspecified; F32.9 Major depressive disorder, single episode, unspecified; L81.6 Other disorders of diminished melanin formation; Z79.899 Other long term (current) drug therapy; Z82.49 Family history of ischemic heart disease and other diseases of the circulatory system; Z79.82 Long term (current) use of aspirin; Z79.4 Long term (current) use of insulin; Z68.33 Body mass index [BMI] 33.0-33.9, adult
CPT/HCPCS: 36415; 80048; 80076; 82248; 82306; 82550; 82607; 82728; 82746; 82962; 83540; 83550; 83735; 83880; 84100; 84134; 84443; 92523; 92610; 93005; 93970; 97110; 97112; 97116; 97163; 97166; 97530; 97535; C1893; J1650; J1815; J7070